=== PATIENT | female | born 1965 | race Caucasian/White ===

== ENCOUNTER → 2017-03-10 | Outpatient (CLI) | payer BC ==
--- NOTE | 2017-03-10 14:02 | DI ---
LEFT DIAGNOSTIC MAMMOGRAMS WITH DIGITAL BREAST TOMOSYNTHESIS, 03/10/2017 12:46 PM: Clinical History: Recall for abnormal screening mammogram. A mass was identified in the right axillar y tail region. Prior Exam: 03/02/2017. Digital tomosynthesis scans of the right breast are obtained with the [facility] Digital Breast [facility]. C-View images are obtained in the same projections as in the screening exam. CAD review is als o performed. Breast tissue density is rated as heterogenously dense. A multilobulated high density lesion is seen in the axillary tail and this is the same lesion seen on the screening mammogram. The margins are smo oth and there are no abnormal calcifications. No spiculations are evident. It measures approximately 20 x 25 x 50 mm and within this mass are focal areas of fatty tissue as well as some ducts along with the dense fibrous tissue. This tissue would be most consistent with an isolated focus of fibroglandu lar breast tissue. There is similar tissue that is about 12 mm in diameter located medial to this lar geovani focus of fibroglandular breast tissue. No other masses are seen. No abnormal calcifications are n oted. Skin contour, nipple, and lower axillary region are normal. Follow Up: Breast ultrasound is pending. BIRADS Category: 2. Benign finding. Mammographically, the dense mass in the upper outer quadrant is c onsistent with fibroglandular breast tissue. Assessment: Benign finding.
--- NOTE | 2017-03-10 14:14 | DI ---
RIGHT BREAST ULTRASOUND, 03/10/2017 12:46 PM: Clinical History: Recall for abnormal screening mammogram. A mass was identified in the right axillar y tail region, and the diagnostic right mammogram with digital breast tomosynthesis performed today s hows that the mass is compatible with an isolated focus of fibroglandular breast tissue. A smaller si milar area is noted medial to the axillary lesion. Scans are performed by the technologist and myself through all four quadrants of the right breast wit h the high resolution linear array probe. Color Doppler ultrasound was also performed. The lesion seen on mammography is readily palpable in this patient and it is highly mobile. Scans lola w that this tissue has the appearance of fibroglandular breast tissue and measures approximately 40 x 15 x 15 mm. Slightly more medial to the larger lesion is a 10 mm focus of similar tissue that corres ponds to the smaller density seen on the mammograms. Follow Up: As long as this patient remains clinically asymptomatic, she may reenter a routine breast surveillance protocol consisting of monthly self breast exams if she so desires, and mammograms every year. BIRADS Category: 2. Benign finding. The palpable lump and the abnormality seen on the diagnostic mamm ogram corresponds to an isolated focus of fibroglandular breast tissue. There is a second smaller sim ilar focus of fibroglandular tissue located medial to this larger area. Assessment: Benign finding.
== END ==
LOC: MAMMO 12:42
PROVIDERS: ATTEND Nurse Practitioner Family
DX: R92.8 Other abnormal and inconclusive findings on diagnostic imaging of breast (principal)
CPT/HCPCS: 76641; G0206; G0279